=== PATIENT | male | born 1955 | race African-American/Black ===

== ENCOUNTER 2024-08-03 17:06 | Emergency (ER) | payer OTHER ==
[~2024-08-03] VITALS: Ht 188 cm; Wt 111.1 kg
[~2024-08-03 17:06] MED LIST: CIPRO500 MG PO; LEVOFLOXACIN500 MG PO
[2024-08-03 17:45] VITALS: PULSE 75; RESP 17; TEMP 98.5; O2SAT 98
== END 2024-08-03 17:48 | disposition home or self-care (01) ==
LOC: ER 17:19
DX: Z46.6 Encounter for fitting and adjustment of urinary device (principal); R33.9 Retention of urine, unspecified; I10 Essential (primary) hypertension; R47.9 Unspecified speech disturbances
CPT/HCPCS: 51700; 99283

== ENCOUNTER 2024-08-26 10:07 | Emergency (ER) | payer OTHER ==
[~2024-08-26] VITALS: Ht 188 cm; Wt 111.1 kg
[2024-08-26 12:11] VITALS: PULSE 77; RESP 16; TEMP 98.5
[2024-08-26 12:25] VITALS: BP 136/81; PULSE 77; RESP 16; TEMP 98.5; O2SAT 100
== END 2024-08-26 12:35 | disposition home or self-care (01) ==
LOC: ER 10:17
DX: Z46.6 Encounter for fitting and adjustment of urinary device (principal); I10 Essential (primary) hypertension; R47.9 Unspecified speech disturbances
CPT/HCPCS: 51700; 99283

== ENCOUNTER 2024-09-06 23:10 | Emergency (ER) | payer OTHER ==
[~2024-09-06] VITALS: Ht 188 cm; Wt 111.1 kg
[2024-09-06 23:11] VITALS: PULSE 72; RESP 20; TEMP 98.1
[2024-09-06 23:58] VITALS: BP 129/86; PULSE 57; RESP 20; TEMP 98.4; O2SAT 99
== END 2024-09-07 00:01 | disposition home or self-care (01) ==
LOC: ER 23:14
DX: Z46.6 Encounter for fitting and adjustment of urinary device (principal); N40.1 Benign prostatic hyperplasia with lower urinary tract symptoms; R33.8 Other retention of urine; I10 Essential (primary) hypertension; F80.89 Other developmental disorders of speech and language
CPT/HCPCS: 51700; 87086; 87186; 99283

== ENCOUNTER 2024-09-23 23:48 | Emergency (ER) | payer OTHER ==
[~2024-09-23] VITALS: Ht 188 cm; Wt 111.1 kg
[2024-09-23 23:50] VITALS: PULSE 57; RESP 17; TEMP 98.1
[2024-09-24 00:33] VITALS: BP 152/91; PULSE 59; RESP 17; TEMP 98.4; O2SAT 98
== END 2024-09-24 00:45 | disposition home or self-care (01) ==
LOC: ER 23:55
DX: T83.021A Displacement of indwelling urethral catheter, initial encounter (principal); I10 Essential (primary) hypertension
CPT/HCPCS: 51700; 99282

== ENCOUNTER 2024-10-14 02:27 | Emergency (ER) | payer OTHER ==
[~2024-10-14] VITALS: Ht 188 cm; Wt 111.1 kg
[2024-10-14 02:31] VITALS: TEMP 98.2
[2024-10-14 02:46] VITALS: PULSE 66; RESP 16
[2024-10-14 02:47] VITALS: BP 145/93; PULSE 66; RESP 17; O2SAT 99
== END 2024-10-14 02:55 | disposition home or self-care (01) ==
LOC: ER 02:29
DX: Z46.6 Encounter for fitting and adjustment of urinary device (principal); I10 Essential (primary) hypertension; R47.01 Aphasia
CPT/HCPCS: 51700; 99282

== ENCOUNTER 2024-12-01 15:19 | Emergency (ER) | payer OTHER ==
[~2024-12-01] VITALS: Ht 188 cm; Wt 111.1 kg
[2024-12-01 15:20] VITALS: PULSE 65; RESP 16; TEMP 97.9
[2024-12-01 17:11] LABS: LEUKOCYTE ESTERASE ,URINE SMALL (NEGATIVE); PROTEIN,URINE DIPSTICK 2+ (NEGATIVE); URINE UROBILINOGEN 0.2 mg/dL (0.2 - 1)
[2024-12-01] MEDS ORDERED: CEFPODOXIME PR200 MG PO (17:32)
[2024-12-01 17:40] VITALS: BP 123/76; PULSE 61; RESP 16; TEMP 97.8; O2SAT 97
== END 2024-12-01 17:39 | disposition home or self-care (01) ==
LOC: ER 15:38
DX: Z46.6 Encounter for fitting and adjustment of urinary device (principal); N39.0 Urinary tract infection, site not specified; I10 Essential (primary) hypertension; R47.01 Aphasia
CPT/HCPCS: 51700; 81001; 87086; 87186; 99283